=== PATIENT | male | born 1980 | race Caucasian/White ===

== ENCOUNTER 2016-10-11 18:49 | Inpatient (IN) | payer OTHER ==
--- NOTE | ~2016-10-11 | DS ---
Unit #: [id number] #: [id number] Patient: HEBERT BYRD JR [id number] [place] [address] [id number] MR#: [id number] NAME: HEBERT BYRD JR ROOM: P210 Age: 36 Sex: M Admission Date: 10/11/2016 : 1980 Discharge Date: 10/12/2016 Attending Physician: Yunier Yang M.D. Primary Care Physician: Primary Care Physician No DISCHARGE SUMMARY REASON FOR ADMISSION The patient is a 36-year-old white male, admitted to the [address] [place] [address] unit after he had presented to [facility], demanding pain medication and threatening suicide . HOSPITAL COURSE The patient was admitted to the [address] [place] [address] unit and placed on routine detoxification protocol for opioids. The patient initially refused to leave his bathroom for evaluation, but when seen later on the day of 10/12/2016, denied any suicidal or homicidal ideation. Denied that he had gone to the emergency room for pain management despite documentation to the contrary. He demanded discharge from the hospital and was quite profane and his brief interaction with his denial of suicidal ideation. It was felt that the patient did not meet criteria for further hospitalization and discharge was ordered. FINAL DIAGNOSES Opioid use disorder; antisocial personality disorder; liver cancer by history. DISPOSITION ON DISCHARGE No psychotropic medications or followup were arranged at the time of discharge. The patient was denying suicidal ideation and it is the feeling of this physician that the suicidal threats documented at [facility] were probably related to the patient's pain medication. PROGNOSIS The patient's prognosis is considered guarded. Dictated by... Yunier Yang M.D. CB/elvisl TD: 10/12/2016 16:15 JOB #: [id number] Unit #: [id number] #: [id number] Patient: HEBERT BYRD JR DISCHARGE SUMMARY Page 1 of 1 X Yunier Yang MD X DISCHARGE SUMMARY
--- NOTE | ~2016-10-11 | PA ---
Unit #: [id number] #: [id number] Patient: HEBERT BYRD JR [id number] [place] [address] [id number] MR#: [id number] NAME: HEBERT BRYD JR ROOM: P210 Age: 36 Sex: M Admission Date: 10/11/2016 : 1980 Date of Assessment: 10/12/2016 Attending Physician: Yunier Yang M.D. Admitting Physician: Yunier Yang M.D. Primary Care Physician: Primary Care Physician No PSYCHIATRIC ASSESSMENT IDENTIFYING INFORMATION The patient is a 36-year-old white male admitted after presenting to [facility] reporting wish for pain management. INFORMANT(S) Chart. Patient refuses to leave his shower for interview. CHIEF COMPLAINT None given. HISTORY OF PRESENT ILLNESS The patient is a 36-year-old white male admitted in transfer from [facility]. He had gone to that facility "requesting pain management." The patient reportedly has been diagnosed with liver cancer but is not requiring chemo or radiation. He is only under observation. The patient has been prescribed opiates for the past year to manage pain and states that he is taking 100 mg of fentanyl and 120 mg of OxyContin. Patient reports that his cancer doctor is now declining to give him any more pain medication and he was reporting increased pain and withdrawal symptoms. The patient reported that if he did not get the medication to manage his pain, he would leave the hospital and "get his cousin's gun and blow his brains out." The patient appeared confused during initial evaluation. As noted previously today, the patient declines to leave his shower for evaluation to occur. PAST PSYCHIATRIC HISTORY Not obtained. FAMILY HISTORY Not obtained. SOCIAL HISTORY The patient stays with a cousin. He has been living in [place], [place] but listed address is [place]. He has [facility]. MEDICAL HISTORY As noted previously, patient reports a history of liver cancer and treatment for chronic pain. MEDICATION HISTORY The patient had claimed prescriptions for Neurontin, Adderall, OxyContin, Keppra, Celexa and Floranex. Unit #: [id number] #: [id number] Patient: HEBERT BYRD JR ALLERGIES None. MENTAL STATUS EXAM At this time cannot take place as the patient declines to leave his shower for evaluation to occur. ASSETS AND LIABILITIES Patient's assets to be assessed. Liabilities, failing health. ADMITTING DIAGNOSES 1. Opioid use disorder. 2. Antisocial personality disorder. 3. Liver cancer by history. 4. Seizure disorder by history. PSYCHIATRIC PLAN/TREATMENT GOALS The patient will remain hospitalized for safety and stabilization. Suicide precautions are in place. The patient will continue previously prescribed Keppra and Celexa. Neurontin, Adderall and oxycodone will be discontinued given the patient's history of substance abuse. It is my suspicion that once the patient learns that he will not be prescribed oxycodone or other pain medications that his suicidal ideation will likely resolve and that he will demand discharge from the hospital and it will likely ordered at that time as it is the feeling of this physician that the patient's suicidal threats made at [facility] were manipulative in an effort to obtain pain medication. ESTIMATED LENGTH OF STAY Three to four days. Dictated by... Yunier Yang M.D. VLADIMIR/shannon TD: 10/12/2016 15:31 JOB #: [id number] PSYCHIATRIC ASSESSMENT Page 1 of 1 X Yunier Yagn MD X PSYCHIATRIC ASSESSMENT
--- NOTE | ~2016-10-11 | HP ---
Unit #: [id number] #: [id number] Patient: HEBERT BYRD JR [id number] [place] [address] [id number] I MR#: [id number] NAME: HEBERT BYRD JR ROOM: P210 Age: 36 Sex: M Admission Date: 10/11/2016 : 1980 Attending Physician: Yunier Yang M.D. Admitting Physician: Yunier Yang M.D. Primary Care Physician: Primary Care Physician No HISTORY AND PHYSICAL NOTE Hebert is a 36 year old who was admitted and discharged within the first 24 hours. He was not seen for an H & P. Dictated by... Cora Murillo P.A.-C. for Jason Hodge/ruben TD: 10/12/2016 21:14 JOB #: [id number] HISTORY AND PHYSICAL Page 1 of 1 X Cora Murillo HISTORY AND PHYSICAL
[2016-10-12 09:36] LABS: BASOPHIL# 0.1 X10e3 (0-0.3); BASOPHIL% 0.8 % (0-2.5); EOSINOPHIL# 0.4 X10e3 (0-0.7); EOSINOPHIL% 5.1 % (0.0-7.0); HEMATOCRIT 37.9 % (38.0-50.0); HEMOGLOBIN 12.6 gm/dL (13.0-16.0); LYMPHOCYTE# 2.3 X10e3 (1.0-3.5); LYMPHOCYTE% 26.9 % (17.0-45.0); MEAN CELL VOLUME 82.1 FL (83-96); MEAN CORPUSCULAR HEMOGLOBIN 27.3 PG (28-34); MEAN CORPUSCULAR HGB CONC 33.2 g/dL (30-36); MEAN PLATELET VOLUME 9.7 FL (6.5-11.5); MONOCYTE# 0.5 X10e3 (0-1.0); MONOCYTE% 5.8 % (3.0-12.0); NEUTROPHIL# 5.2 X10e3 (1.5-7.1); NEUTROPHIL% 61.4 % (40-75); PLATELET COUNT 179 X10e3 (140-420); RED BLOOD COUNT 4.62 X10e (3.90-5.60); RED CELL DISTRIBUTION WIDTH 13.5 % (11.0-15.5); WHITE BLOOD COUNT 8.5 X10e3 (4.0-10.5)
[2016-10-12 09:49] LABS: DIFF IND NO
[2016-10-12 10:12] LABS: ALBUMIN SERUM 3.3 g/dL (3.5-5.0); BILIRUBIN,TOTAL 0.2 mg/dL (0.2-2.0); BUN/CREATININE RATIO 12.22; CALCIUM SERUM 8.4 mg/dL (8.4-10.2); CREATININE SERUM 0.9 mg/dL (0.6-1.4); GLOM FILT RATE Estimated 110.3 mL/min (>60); POTASSIUM 3.8 mmol/L (3.5-5.1); PROTEIN TOTAL SERUM 6.3 g/dL (6.0-8.3)
[2016-10-15 01:23] LABS: HA AB IGM (HEPPAN) Nonreactive (()); HB CORE AB IGM (HEPPAN) Nonreactive (Nonreactive); HB S AG (HEPPAN) Nonreactive (Nonreactive); HEP C AB (HEPPAN) Nonreactive (Nonreactive); HEP C AB SIGNAL TO CUTOFF 0.07 ratio (<1.00)
== END 2016-10-12 14:10 | disposition home or self-care (01) | DRG 897 ==
LOC: P2S 23:14
PROVIDERS: Specialist
DX: F11.10 Opioid abuse, uncomplicated (principal); F60.2 Antisocial personality disorder; G40.909 Epilepsy, unspecified, not intractable, without status epilepticus; Z85.05 Personal history of malignant neoplasm of liver
CPT/HCPCS: 80053; 80074; 85025; 86592; 87806